=== PATIENT | female | born 1980 | race African-American/Black ===

== ENCOUNTER 2019-10-11 01:49 | Emergency (ER) | payer SELFPAY ==
[~2019-10-11] VITALS: Ht 172.7 cm; Wt 127.0 kg
[2019-10-11] MEDS ORDERED: ALPRAZOLAM 0.25 MG TABLET PO ONE (03:15)
[2019-10-11 05:23] VITALS: BP 129/81
== END 2019-10-11 05:23 | disposition home or self-care (01) ==
LOC: ER 01:49
DX: F41.1 Generalized anxiety disorder (principal); F43.0 Acute stress reaction; R03.0 Elevated blood-pressure reading, without diagnosis of hypertension; Z63.79 Other stressful life events affecting family and household
CPT/HCPCS: 81025; 99283